=== PATIENT | male | born 1970 | race Caucasian/White ===

== ENCOUNTER 2020-02-07 03:14 | Emergency (ER) | payer OTHER, SELFPAY ==
--- NOTE | ~2020-02-07 | XR_ITS ---
XR chest 2V DATE: 02/07/2020 03:58 INDICATION: Left-sided chest pain TECHNIQUE: PA and lateral views COMPARISON: 05/08/2008 two-view chest FINDINGS: Normal heart size. No hilar or mediastinal enlargement. No pulmonary infiltrate or consolid ation, pleural effusion or pulmonary vascular congestion or pneumothorax. Surgical clips, right upper quadrant, consistent with cholecystectomy. Mild scoliosis and degenerativ e spurring of the thoracic spine. IMPRESSION: No active cardiopulmonary disease Reviewed, dictated and finalized at location A.
[2020-02-07 03:20] VITALS: BP 171/101; PULSE 91; RESP 22; TEMP 37.5; O2SAT 100
[2020-02-07 03:23] VITALS: PULSE 87
--- NOTE | 2020-02-07 03:24 | PC.NURSE ---
Pt states having a metallic taste in his mouth earlier.
[2020-02-07 04:00] LABS: Basophils Percent Auto 0.8 % (0.2-1.2); Eosinophils Absolute Auto 0.2 K/mm3 (0-0.3); Hemoglobin 15.8 g/dL (14.0-18.0); Immature Granulocyte Absolute 0.01 K/mm3 (0.00-0.031); Immature Granulocyte Percent A 0.2 % (0-0.5); Immature Platelet Fraction Pct 4.8 % (0.9-11.2); Lymphocytes Absolute Auto 1.37 K/mm3 (0.9-3.2); Lymphocytes Percent Auto 27.2 % (18.3-44.2); Mean Corpuscular HGB Conc 35.1 g/dl (32-36); Mean Corpuscular Hemoglobin 34.3 pg (26-34); Mean Corpuscular Volume 97.6 fl (80-100); Mean Platelet Volume 11.2 fl (7.4-10.4); Monocytes Absolute Auto 0.8 K/mm3 (0.1-0.6); Monocytes Percent Auto 15.9 % (2.6-8.5); Neutrophils Absolute Auto 2.7 K/mm3 (1.3-6.7); Neutrophils Percent Auto 52.9 % (45.5-73.1); Platelet Count Result 106 k/mm3 (150-375); Red Blood Count 4.61 M/mm3 (4.6-6.20); Red Cell Distribution Width 13.4 % (11.5-14.5)
[2020-02-07 04:02] VITALS: BP 173/103; PULSE 87
[2020-02-07 04:10] LABS: INR 1.2; Prothrombin Time 14.6 Seconds (11.1-14.7)
[2020-02-07 04:11] LABS: Partial Thromboplastin Time 32.7 SECONDS (22.3-36.8)
[2020-02-07 04:13] LABS: Blood Urea Nitrogen 5 mg/dL (9-20); Calcium 8.4 mg/dL (8.4-10.2); Carbon Dioxide 23 mmol/L (22-30); Chloride 107 mmol/L (98-107); Estimated CRCL calculation 199 ml/min; Estimated Glomerular Filt Rate > 60; Glucose 156 mg/dL (75-110); Potassium 3.6 mmol/L (3.4-5.0); Sodium 136 mmol/L (137-145)
[2020-02-07] MEDS: ASPIRIN 81 MG CHEWABLE TABLET 324 MG PO (04:17)
--- NOTE | 2020-02-07 04:21 | ED.GENADULT ---
HPI - General Adult General Chief complaint: Chest Pain <Cristian Rodriges MD - Last Filed: 02/07/20 04:59> Stated complaint: Chest pain <Cristian Rodriges MD - Last Filed: 02/07/20 04:59> Time Seen by Provider: 02/07/20 03:16 <Cristian Rodriges MD - Last Filed: 02/07/20 04:59> History of Present Illness HPI narrative: Patient is a 49-year-old male who presents to the ER with chest pain. Began around 1230 and 1 AM. Intermittent. Pain was left center chest. Would last for a few seconds but was increasing in duration and intensity. No nausea/vomiting/shortness of breath/diaphoresis. No known injury. No known aggravating or alleviating factors. No history of cardiac disease. Reports 10 years ago he had cramping in his chest that was diagnosed as pneumonia. Reports temperature of 98.9 ?F. Patient does report the day prior he had a cramp in the posterior aspect of his left neck with some numbness going down his left arm. That has since resolved on its own. Symptoms would be worsened with turning his head and there is no chest pain at that time. Patient also reports that he has been feeling fatigued for the last year and has had increased stress at work and has lost interest in his hobbies. He feels extremely exhausted by 3 PM in the afternoon and has to take a nap. He has not had this worked up. No previous history of depression. <Cristian Rodriges MD - Last Filed: 02/07/20 04:59> Related Data Allergies/adverse reactions: Allergies Allergy/AdvReac Type Severity Reaction Status Date / Time Penicillins Allergy Unknown Rash Verified 02/07/20 03:22 <Cristian Rodriges MD - Last Filed: 02/07/20 04:59> Review of Systems Review of Systems: All systems reviewed & are unremarkable except as noted in HPI and below <Cristian Rodriges MD - Last Filed: 02/07/20 04:59> Constitutional: Constitutional: Denies chills, Reports fatigue, Denies fever(s) and Denies weakness <Cristian Rodriges MD - Last Filed: 02/07/20 04:59> ENT: Denies sore throat <Cristian Rodriges MD - Last Filed: 02/07/20 04:59> Cardiovascular: Cardiovascular: Reports chest pain and Reports radiating jaw, neck or arm pain <Cristian Rodriges MD - Last Filed: 02/07/20 04:59> Respiratory: Respiratory: Denies cough, Denies dyspnea and Denies wheezing <Cristian Rodriges MD - Last Filed: 02/07/20 04:59> Gastrointestinal: Gastrointestinal: Denies abdominal pain, Reports heartburn (metallic taste in mouth), Denies nausea and Denies vomiting <Cristian Rodriges MD - Last Filed: 02/07/20 04:59> PMFSH Past Medical History Medical History: Medical History (Updated 02/07/20 @ 07:19 by Carlos Brown DO) BPH (benign prostatic hyperplasia) Hemochromatosis Hypertension <Cristian Rodriges MD - Last Filed: 02/07/20 04:59> Surgical History Surgical History: Surgical History (Updated 02/07/20 @ 04:29 by Cristian Rodriges MD) S/P knee replacement <Cristian Rodriges MD - Last Filed: 02/07/20 04:59> Family History Family History: Family History (Updated 02/07/20 @ 04:29 by Cristian Rodrigse MD) Father Malignant neoplasm of prostate <Cristian Rodriges MD - Last Filed: 02/07/20 04:59> Social History Social History: Social History Smoking status: Never smoker Alcohol intake: current <Cristian Rodriges MD - Last Filed: 02/07/20 04:59> Exam Narrative: Exam Narrative: GENERAL: Well-appearing, obese, and in no acute distress. HEAD: Normocephalic, atraumatic. ENT: Mucous membranes moist. CHEST: Clear to auscultation. No respiratory distress. HEART: Regular rate and rhythm. No murmur heard. Normal peripheral pulses. ABDOMEN: Soft, nontender, nondistended. EXTREMITIES: Normal range of motion. 1+ edema. SKIN: Warm, dry, no rash. NEURO: Alert and oriented x3. PSYCH: Normal mood and affect. <Cristian Rodriges MD - Last Filed: 02/07/20 04:59> Course Course Emergency Course:
[2020-02-07 04:25] LABS: Troponin I < 0.012 ng/mL (0.000-0.034)
[2020-02-07 06:19] VITALS: BP 164/97; PULSE 95; RESP 18; O2SAT 100
[2020-02-07 07:05] LABS: Troponin I < 0.012 ng/mL (0.000-0.034)
--- NOTE | 2020-02-07 12:45 | ECG_ITS ---
Measurements Intervals [place] Rate: 89 P: 29 DC: 154 QRS: 5 QRSD: 114 T: 14 QT: 385 QTc: 469 Interpretive Statements SINUS RHYTHM INTRAVENTRICULAR CONDUCTION DELAY BASELINE ARTIFACT- I, II, III, AVL, AVF BORDERLINE ECG Electronically Signed On 02-07-2020 13:00:48 CDT by Rashad Garcia D.O.
== END 2020-02-07 06:19 | disposition home or self-care (01) ==
PROVIDERS: Emergency Medicine; Emergency Provider Emergency Medicine; PCP Family Medicine
DX: R07.9 Chest pain, unspecified (principal); N40.0 Benign prostatic hyperplasia without lower urinary tract symptoms; I10 Essential (primary) hypertension; E83.119 Hemochromatosis, unspecified; Z96.659 Presence of unspecified artificial knee joint; I45.9 Conduction disorder, unspecified
CPT/HCPCS: 36415; 71046; 80048; 84443; 84484; 85025; 85055; 85610; 85730; 93005; 99284; A9270

== ENCOUNTER 2020-09-08 11:48 | Inpatient (IN) | payer OTHER, SELFPAY ==
[2020-09-08] VITALS (15 sets, daily range): BP systolic 145–180; BP diastolic 71–89; PULSE 88–110; RESP 14–22; TEMP 37.1–39.6; O2SAT 94–99; BMI 38.9
--- NOTE | ~2020-09-08 | CT_ITS ---
EXAMINATION: CT abdomen pelvis w con DATE: 09/08/2020 13:24 INDICATION: Right lower quadrant abdominal pain. Fever. TECHNIQUE: Computed tomography (CT) of the abdomen and pelvis was performed with 100 cc Omnipaque 350 intravenous contrast. The dose-length product was 1432.69 mGy-cm. Automated exposure control and ite rative reconstruction technique were employed. COMPARISON: None. FINDINGS: Lung bases are unremarkable. No significant pleural or pericardial effusion. Heart size is normal. Fatty infiltration of the liver. There is cirrhosis of the liver. There are low-density lesions in th e right hepatic lobe, most likely benign cysts. There is splenomegaly. There are multiple collateral vessels with recanalization of the umbilical vein. Findings compatible with portal hypertension. There is a 3 mm distal right ureteral stone with mild right hydroureteronephrosis. There is perinephr ic and periureteral edema. Normal appendix. Bladder wall is mildly thickened. Colonic diverticulosis without evidence for diverticulitis. No abnormality of the aorta. No significant lymphadenopathy. IMPRESSION: 1. Distal right ureteral stone in the pelvis measuring 3 mm with mild hydronephrosis. 2: Cirrhosis of the liver with evidence of portal hypertension. 3: Bladder wall thickening. Consider correlation with urinalysis. Reviewed, dictated and finalized at location A. IMPRESSION: 1. Distal right ureteral stone in the pelvis measuring 3 mm with mild hydroneph rosis. 2: Cirrhosis of the liver with evidence of portal hypertension. 3: Bladder wall thickening. Consider correlation with urinalysis.
--- NOTE | ~2020-09-08 | XR_ITS ---
XR retrograde pyelo w/stent RT DATE: 09/08/2020 15:41 INDICATION: Stones TECHNIQUE: 30.0 seconds fluoroscopy time [id number] mGym2 3. Spot C-arm images of the abdomen and pelvis COMPARISON: None FINDINGS: Examination is limited due to motion. There is placement of a right internal urinary stent, proximal pigtail overlying the right renal silhouette approximately, the distal pigtail overlying th e right lower pelvic area. Detail is limited. IMPRESSION: Right internal urinary stent placement Reviewed, dictated and finalized at [facility]. Reviewed, dictated and finalized at location A.
--- NOTE | 2020-09-08 12:05 | ED.MALEGU ---
HPI - Male Genitourinary General Chief complaint: Urogenital-Male Stated complaint: sent by PMD for possible sepsis. Time Seen by Provider: 09/08/20 12:05 Source: patient Mode of arrival: ambulatory Limitations: no limitations History of Present Illness HPI Narrative: Patient is a 50-year-old male with history of hemochromatosis who presents for evaluation of possible sepsis per his primary care provider. Patient states over the past 3 weeks he has had dysuria, hematuria as well as some dribbling incontinence He reports mild right lower quadrant pain and right flank pain. He denies nausea or vomiting, reports fever. Patient states general malaise and myalgias. He denies any cough, chest pain or shortness of breath. No urinalysis sample sent or recent antibiotics. No recent sick contacts. Patient reports that he has been jaundiced. He states that he does not receive regular phlebotomy at this point. He formerly followed at [facility], but his community associate recently retired and he has not established care with anybody. Related Data Home Medications Medication Instructions Recorded Confirmed pantoprazole 20 mg tablet,delayed 20 mg PO [facility] [place] 02/08/20 release Allergies Allergy/AdvReac Type Severity Reaction Status Date / Time Penicillins Allergy Unknown Rash Verified 09/08/20 12:00 Review of Systems Review of Systems: Narrative: CONSTITUTIONAL: Reports fever and chills EYES: Denies visual changes, redness, or discharge. ENT: Denies rhinorrhea, congestion, sore throat, or otalgia. CARDIOVASCULAR: Denies chest pain, palpitations, or edema. RESPIRATORY: Denies cough or dyspnea. GASTROINTESTINAL: Reports mild right-sided abdominal pain, denies nausea, vomiting or diarrhea GENITOURINARY: Reports dysuria and hematuria. SKIN: Denies rash or itching. MUSCULOSKELETAL: Denies back pain, joint pain, or myalgia. NEUROLOGIC: Denies headache, numbness, or weakness. [facility] Past Medical History Medical History BPH (benign prostatic hyperplasia) Depression Hemochromatosis Hypertension Urge incontinence Surgical History Surgical History S/P knee replacement Family History Family History Father Malignant neoplasm of prostate Social History Social History Smoking status: Never smoker Alcohol intake: current Exam Narrative: Exam Narrative: GENERAL: Awake, alert, conversant HEAD: Normocephalic, atraumatic. EYES: PERRLA and EOMI. scleral icterus bilaterally. ENT: Nares clear, no rhinorrhea or epistaxis. Mucous membranes moist. NECK: Supple. CHEST: No respiratory distress, breathing even and non labored HEART: Tachycardic his eyes rate, sinus rhythm ABDOMEN:Non distended, mild tenderness in the right lower quadrant, no guarding, no rebound EXTREMITIES: Normal range of motion. No edema. SKIN: Mildly jaundiced NEURO:No focal deficits. Alert and oriented x3 Course Vital Signs Vital signs: Vital Signs Temperature 38.7 C H 09/08/20 11:54 Pulse Rate 110 H 09/08/20 11:54 Respiratory Rate 22 H 09/08/20 11:54 Blood Pressure 154/73 H 09/08/20 11:54 Pulse Oximetry 97 09/08/20 11:54 Temperature 38.7 C H 09/08/20 11:54 Pulse Rate 88 09/08/20 15:04 Respiratory Rate 18 09/08/20 15:04 Blood Pressure 150/80 H 09/08/20 15:04 Pulse Oximetry 99 09/08/20 15:04 MDM - Male Genitourinary MDM Narrative Medical decision making narrative: Patient is a 50-year-old male that presented for evaluation of fever, right-sided abdominal pain. At the time of assessment, ABCs are intact, vital signs notable for fever, tachycardia. No hypotension. IV access obtained, labs are drawn, including blood cultures and lactic. Patient was given a 30 mL/kg fluid bolus. Urinalysis consistent with uri
--- NOTE | 2020-09-08 12:07 | ECG_ITS ---
Measurements Intervals [place] Rate: 98 P: 49 VA: 160 QRS: 16 QRSD: 105 T: 10 QT: 346 QTc: 442 Interpretive Statements SINUS RHYTHM RSR' IN V1 OR V2, CONSIDER RIGHT VENTRICULAR HYPERTROPHY OR RIGHT VCD BORDERLINE T WAVE ABNORMALITY- INFERIOR LEADS BORDERLINE ECG Electronically Signed On 09-08-2020 18:11:43 CDT by Rashad Garcia D.O.
[2020-09-08 12:39] LABS: Basophils Percent Auto 0.4 % (0.2-1.2); Eosinophils Percent Auto 0.3 % (0-4.4); Hematocrit 44.4 % (42.0-52.0); Immature Granulocyte Absolute 0.03 K/mm3 (0.00-0.031); Immature Granulocyte Percent A 0.3 % (0-0.5); Immature Platelet Fraction Pct 5.7 % (0.9-11.2); Lymphocytes Absolute Auto 1.32 K/mm3 (0.9-3.2); Lymphocytes Percent Auto 11.9 % (18.3-44.2); Mean Corpuscular Hemoglobin 36.2 pg (26-34); Mean Corpuscular Volume 100.5 fl (80-100); Mean Platelet Volume 11.6 fl (7.4-10.4); Monocytes Absolute Auto 1.4 K/mm3 (0.1-0.6); Neutrophils Absolute Auto 8.2 K/mm3 (1.3-6.7); Neutrophils Percent Auto 74.1 % (45.5-73.1); Platelet Count Result 122 k/mm3 (150-375); Red Blood Count 4.42 M/mm3 (4.6-6.20); Red Cell Distribution Width 13.5 % (11.5-14.5); White Blood Count 11.1 K/mm3 (4.5-10.0)
[2020-09-08 12:44] LABS: Add Urine Microscopic? YES; Appearance Urine Clear (Clear); Bacteria Urine 3+ /hpf; Bilirubin Urine 1+ (Negative); Blood Urine 1+ (Negative); Color Urine Amber (Yellow); Glucose Urine UA Negative (Negative); Ketones Urine Negative (Negative); Leukocyte Esterase Ur Trace LEU/UL (Negative); Mucus Urine Rare /lpf; Nitrate Urine Negative (Negative); Protein Urine Negative (Negative); Squamous Epithelial Cell Urine Rare /hpf (Few); WBC Urine 21-30 /hpf
[2020-09-08 12:49] LABS: INR 1.3
[2020-09-08 12:50] LABS: Partial Thromboplastin Time 34.9 SECONDS (22.3-36.8)
[2020-09-08 12:50] LABS: Lactic Acid Reflex 1.3 mmol/L (0.7-2.1)
[2020-09-08 12:51] LABS: Alanine Aminotransferase 68 U/L (4-50); Albumin Level 3.7 g/dL (3.5-5.1); Alkaline Phosphatase 146 U/L (38-126); Anion Gap 9 mmol/L (8-16); Aspartate Amino Transferase 108 U/L (17-59); Bilirubin,Total 6.7 mg/dL (0.2-1.3); Blood Urea Nitrogen 12 mg/dL (9-20); Calcium 9.2 mg/dL (8.4-10.2); Carbon Dioxide 27 mmol/L (22-30); Chloride 99 mmol/L (98-107); Estimated CRCL calculation 111 ml/min; Estimated Glomerular Filt Rate > 60; Glucose 121 mg/dL (75-110); Lipase 50 U/L (23-300); Potassium 3.7 mmol/L (3.4-5.0); Sodium 135 mmol/L (137-145)
--- NOTE | 2020-09-08 14:13 | WPDANESEPP ---
Anes - Eval Pre Procedure Procedure: cystoscopy Date/Time: 09/08/20 14:13 Pre Op Diagnosis: sent by PMD for possible sepsis. Patient Data Age: 50 Gender: M Height: 5 ft 11 in Weight: 115.6 kg Last Vital Signs Temp 38.7 C H 09/08/20 11:54 Pulse 110 H 09/08/20 11:54 Resp 22 H 09/08/20 11:54 BP 154/73 H 09/08/20 11:54 Pulse Ox 97 09/08/20 11:54 Allergies Allergy/AdvReac Type Severity Reaction Status Date / Time Penicillins Allergy Unknown Rash Verified 09/08/20 12:00 Home Medications Medication Instructions Recorded Confirmed Type pantoprazole 20 mg tablet,delayed 20 mg PO QAM 02/08/20 History release Laboratory Tests 09/08/20 09/08/20 09/08/20 12:16 12:16 12:16 WBC 11.1 K/mm3 H K/mm3 (4.5-10.0) RBC 4.42 M/mm3 L M/mm3 (4.6-6.20) Hgb 16.0 g/dL g/dL (14.0-18.0) Hct 44.4 % % (42.0-52.0) MCV 100.5 fl H fl (80-100) MCH 36.2 pg H pg (26-34) MCHC 36.0 g/dl g/dl (32-36) RDW 13.5 % % (11.5-14.5) Plt Count 122 k/mm3 L k/mm3 (150-375) MPV 11.6 fl H fl (7.4-10.4) Immature Gran % (Auto) 0.3 % % (0-0.5) Neut % (Auto) 74.1 % H % (45.5-73.1) Lymph % (Auto) 11.9 % L % (18.3-44.2) [place] % (Auto) 13.0 % H % (2.6-8.5) Eos % (Auto) 0.3 % % (0-4.4) Baso % (Auto) 0.4 % % (0.2-1.2) Lymph # (Auto) 1.32 K/mm3 K/mm3 (0.9-3.2) [place] # (Auto) 1.4 K/mm3 H K/mm3 (0.1-0.6) Eos # (Auto) 0.0 K/mm3 K/mm3 (0-0.3) Baso # (Auto) 0.0 K/mm3 K/mm3 (0.0-0.1) Abs Immat Gran (auto) 0.03 K/mm3 K/mm3 (0.00-0.031) Absolute Neuts (auto) 8.2 K/mm3 H K/mm3 (1.3-6.7) Absolute Nucleated RBC 0.0 K/mm3 K/mm3 (0.0-0.012) Nucleated RBC % 0.0 % % (0.0-0.2) % Immature Plt Fraction 5.7 % % (0.9-11.2) PT INR APTT Sodium 135 mmol/L L mmol/L (137-145) Potassium 3.7 mmol/L mmol/L (3.4-5.0) Chloride 99 mmol/L mmol/L (98-107) Carbon Dioxide 27 mmol/L mmol/L (22-30) Anion Gap 9 mmol/L mmol/L (8-16) BUN 12 mg/dL D mg/dL (9-20) Creatinine 0.90 mg/dL mg/dL (0.7-1.3) Estim Creat Clear Calc 111 ml/min ml/min Estimated GFR > 60 (59 - ) Glucose 121 mg/dL H mg/dL (75-110) Lactic Acid Calcium 9.2 mg/dL mg/dL (8.4-10.2) Total Bilirubin 6.7 mg/dL H mg/dL (0.2-1.3) AST 108 U/L H U/L (17-59) ALT 68 U/L H U/L (4-50) Alkaline Phosphatase 146 U/L H U/L (38-126) Total Protein 8.0 g/dL g/dL (6.3-8.2) Albumin 3.7 g/dL g/dL (3.5-5.1) Lipase 50 U/L U/L (23-300) Urine Color Taryn (Yellow) Urine Appearance Clear (Clear) Urine pH 7.0 (5.0-9.0) Ur Specific [place] 1.020 (1.001-1.035) Urine Protein Negative mg/dL mg/dL (Negative) Urine Glucose (UA) Negative mg/dL mg/dL (Negative) Urine Ketones Negative mg/dL mg/dL (Negative) Ur Blood (Man) 1+ H (Negative) Urine Nitrate Negative (Negative) Urine Bilirubin 1+ H (Negative) Urine Urobilinogen 4.0 mg/dL H mg/dL (<2.0) Leukocyte Esterase Rfl Trace MARIN/UL H MARIN/UL (Negative) Urine RBC 11-20 /hpf H /hpf (0-2) Urine WBC 21-30 /hpf H /hpf Ur Squamous Epith Cells Rare /hpf /hpf (Few) Urine Bacteria 3+ /hpf H /hpf Urine Mucus Rare /lpf /lpf 09/08/20 09/08/20 12:16 12:21 WBC RBC Hgb Hct MCV MCH MCHC RDW Plt Count MPV Immature Gran % (Auto) Neut % (Auto) Lymph % (
--- NOTE | 2020-09-08 14:50 | WPDURCON ---
Assessment and Plan Additional Plan Right distal ureteral stone with fever and tachycardia. He will need a right ureteral stent to relieve any obstruction present. We discussed that he will still need definitive stone management after this treatment. It is unclear all of his symptoms are related to the stone. His CT scan shows findings consistent with portal hypertension. Urology Consult Note HPI Date Seen: 09/08/20 Requesting Physician: Chris Boyd MD Primary Care Provider: Jose Cruz Meza MD Consult Narrative Narrative: Esteban Calzada is a 50 year old male. He has been having right sided abdominal pain. He developed a fever and sweats and came to the ER. He was found to have a right ureteral stone on CT scan. Review of Systems Constitutional: Constitutional: Reports body ache(s) and Reports chills Eyes: Eyes: Reports no additional eye complaints Cardiovascular: Cardiovascular: Reports no additional cardiovascular complaints Gastrointestinal: Gastrointestinal: Reports abdominal pain Musculoskeletal: Musculoskeletal: Reports no additional musculoskeletal complaints Neurologic: Reports Normal hearing present Psychiatric: Psychiatric: Reports no additional psychiatric complaints Endocrine: Endocrine: Reports no additional endocrine complaints Hematologic/Lymphatic: Hematologic/Lymphatic: Reports no additional hematologic/lymphatic complaints Allergic/Immunologic: Allergic/Immunologic: Reports no additional allergic/immunologic complaints [facility] Past Medical History Medical History BPH (benign prostatic hyperplasia) Depression Hemochromatosis Hypertension Urge incontinence Surgical History Surgical History S/P knee replacement Family History Family History Father Malignant neoplasm of prostate Social History Social History Smoking status: Never smoker Alcohol intake: current Meds Home Medications and Allergies Home Medications Medication Instructions Recorded Confirmed Type pantoprazole 20 mg tablet,delayed 20 mg PO QAM 02/08/20 History release Allergies Allergy/AdvReac Type Severity Reaction Status Date / Time Penicillins Allergy Unknown Rash Verified 09/08/20 12:00 Vital Signs Vital Signs - 24 hr 09/08/20 11:54 Temperature 38.7 C H Pulse Rate 110 H Respiratory Rate 22 H Blood Pressure 154/73 H Pulse Oximetry 97 Exam Const: General: cooperative; No comfortable HENMT: Head: normal to inspection, normocephalic and atraumatic Eyes: Sclera: scleral abnormality bilateral Neck: Neck: normal visual inspection Chest: Chest palpation & inspection: normal inspection of the chest Resp: Effort & Inspection: normal respiratory effort Cardio: Rate: tachycardic GI: Inspection: no edema, non-distended and [place] present Skin: General skin exam: normal color and no rashes or lesions noted Neuro: General: oriented to person, oriented to place and oriented to time Extrem: General: normal to inspection Psych: Appearance: grossly normal and well kempt Results Labs CBC & Chem 7: 09/08/20 12:16 09/08/20 12:16 Labs: Short CBC 09/08/20 Range/Units 12:16 WBC 11.1 H (4.5-10.0) K/mm3 Hgb 16.0 (14.0-18.0) g/dL Hct 44.4 (42.0-52.0) % Plt Count 122 L (150-375) k/mm3 BMP 09/08/20 12:16 Sodium 135 L Potassium 3.7 Chloride 99 Carbon Dioxide 27 BUN 12 D Creatinine 0.90 Glucose 121 H Calcium 9.2 Liver Function 09/08/20 Range/Units 12:16 Total Bilirubin 6.7 H (0.2-1.3) mg/dL AST 108 H (17-59) U/L ALT 68 H (4-50) U/L Alkaline Phosphatase 146 H (38-126) U/L Albumin 3.7 (3.5-5.1) g/dL Urine 09/08/20 Range/Units 12:16 Urine Co
--- NOTE | 2020-09-08 15:09 | WPDANESEPPF ---
Anes - Initial Pre Proc Eval Procedure: Operation Date: 09/08/20 15:30 Proposed Procedures p Cysto, RPG, Stone Ext, Stent Placement(Right) - Chris Boyd MD Date/Time: 09/08/20 15:09 Surgeon: Chris Boyd MD Pre Op Diagnosis: sent by PMD for possible sepsis. Patient Data Age: 50 Gender: M Height: 1.8 m Weight: 115.6 kg Last Vital Signs Temp 38.7 C H 09/08/20 11:54 Pulse 88 09/08/20 15:04 Resp 18 09/08/20 15:04 BP 150/80 H 09/08/20 15:04 Pulse Ox 99 09/08/20 15:04 Allergies Allergy/AdvReac Type Severity Reaction Status Date / Time Penicillins Allergy Unknown Rash Verified 09/08/20 12:00 Home Medications Medication Instructions Recorded Confirmed Type pantoprazole 20 mg tablet,delayed 20 mg PO QAM 02/08/20 History release Laboratory Tests 09/08/20 09/08/20 09/08/20 12:16 12:16 12:16 WBC 11.1 K/mm3 H K/mm3 (4.5-10.0) RBC 4.42 M/mm3 L M/mm3 (4.6-6.20) Hgb 16.0 g/dL g/dL (14.0-18.0) Hct 44.4 % % (42.0-52.0) MCV 100.5 fl H fl (80-100) MCH 36.2 pg H pg (26-34) MCHC 36.0 g/dl g/dl (32-36) RDW 13.5 % % (11.5-14.5) Plt Count 122 k/mm3 L k/mm3 (150-375) MPV 11.6 fl H fl (7.4-10.4) Immature Gran % (Auto) 0.3 % % (0-0.5) Neut % (Auto) 74.1 % H % (45.5-73.1) Lymph % (Auto) 11.9 % L % (18.3-44.2) [place] % (Auto) 13.0 % H % (2.6-8.5) Eos % (Auto) 0.3 % % (0-4.4) Baso % (Auto) 0.4 % % (0.2-1.2) Lymph # (Auto) 1.32 K/mm3 K/mm3 (0.9-3.2) [place] # (Auto) 1.4 K/mm3 H K/mm3 (0.1-0.6) Eos # (Auto) 0.0 K/mm3 K/mm3 (0-0.3) Baso # (Auto) 0.0 K/mm3 K/mm3 (0.0-0.1) Abs Immat Gran (auto) 0.03 K/mm3 K/mm3 (0.00-0.031) Absolute Neuts (auto) 8.2 K/mm3 H K/mm3 (1.3-6.7) Absolute Nucleated RBC 0.0 K/mm3 K/mm3 (0.0-0.012) Nucleated RBC % 0.0 % % (0.0-0.2) % Immature Plt Fraction 5.7 % % (0.9-11.2) PT INR APTT Sodium 135 mmol/L L mmol/L (137-145) Potassium 3.7 mmol/L mmol/L (3.4-5.0) Chloride 99 mmol/L mmol/L (98-107) Carbon Dioxide 27 mmol/L mmol/L (22-30) Anion Gap 9 mmol/L mmol/L (8-16) BUN 12 mg/dL D mg/dL (9-20) Creatinine 0.90 mg/dL mg/dL (0.7-1.3) Estim Creat Clear Calc 111 ml/min ml/min Estimated GFR > 60 (59 - ) Glucose 121 mg/dL H mg/dL (75-110) Lactic Acid Calcium 9.2 mg/dL mg/dL (8.4-10.2) Total Bilirubin 6.7 mg/dL H mg/dL (0.2-1.3) AST 108 U/L H U/L (17-59) ALT 68 U/L H U/L (4-50) Alkaline Phosphatase 146 U/L H U/L (38-126) Total Protein 8.0 g/dL g/dL (6.3-8.2) Albumin 3.7 g/dL g/dL (3.5-5.1) Lipase 50 U/L U/L (23-300) Urine Color Taryn (Yellow) Urine Appearance Clear (Clear) Urine pH 7.0 (5.0-9.0) Ur Specific [place] 1.020 (1.001-1.035) Urine Protein Negative mg/dL mg/dL (Negative) Urine Glucose (UA) Negative mg/dL mg/dL (Negative) Urine Ketones Negative mg/dL mg/dL (Negative) Ur Blood (Man) 1+ H (Negative) Urine Nitrate Negative (Negative) Urine Bilirubin 1+ H (Negative) Urine Urobilinogen 4.0 mg/dL H mg/dL (<2.0) Leukocyte Esterase Rfl Trace MARIN/UL H MARIN/UL (Negative) Urine RBC 11-20 /hpf H /hpf (0-2) Urine WBC 21-30 /hpf H /hpf Ur Squamous Epith Cells Rare /hpf /hpf (Few) Urine Bacteria 3+ /hpf H /hpf Urine Mucus Rare /lpf /lpf 09/08/20 09/08/20 12:16 12:21 WBC RBC Hgb Hct MCV
--- NOTE | 2020-09-08 15:15 | PC.NURSE ---
pt received all 3500ml of MS that was ordered in the ED.
[2020-09-08] MEDS: LIDOCAINE HCL 2% GEL UROJET 10 ML PKG MUCOUS MEM (15:32)
[2020-09-08] MEDS: LACTATED RINGERS 1,000 ML 30 ML IV CONT (15:41)
--- NOTE | 2020-09-08 15:41 | P.OP_ITS ---
Procedure Note - Detailed Date of procedure: 09/08/20 Pre-op diagnosis: sent by PMD for possible sepsis. Right ureteral stone Post-op diagnosis: same Procedure performed: Cystoscopy with right retrograde pyelogram and right ureteral stent placement Description of procedure: Indication for procedure: ureteral stone with possible sepsis Procedure Report: The patient was brought emergently to the operating room for a right ureteral stone. He was in stable condition. He was placed under monitored anesthesia care with sedation. Local lidocaine jelly was given. He was placed in lithotomy position and prepped and draped in sterile fashion. A 22 [place] cystoscope was introduced through the urethra into the bladder. The right ureter was cannulated with the [id number] wire followed by an open ended catheter. A retrograde pyelogram was performed. There was mild right hydronephrosis. The wire was placed to the upper pole of the right kidney. Under direct vision and fluoroscopic guidance, a 6 [place] variable length stent was placed. A good curl was noted in the upper pole of the kidney and a good curl was seen in the bladder. The bladder was drained, and the cystoscope was removed. The patient was brought to the recovery room in stable condition. Implants: 6 [place] ureteral stent Anesthesia: MAC Surgeon: Chris Boyd MD Estimated blood loss (mL): 0 IV fluids (mL): 300 Drains: No Packing: No Pathology: none sent Complications: No immediate complications Condition: stable Disposition: PACU Findings: Mild right hydronephrosis
--- NOTE | 2020-09-08 16:08 | SUR.PHASEI ---
1608 - Ashlee CHAMBERS aware of pt's temp of 103.3. no orders received at this time.
--- NOTE | 2020-09-08 16:50 | ADMGEN ---
This patient, Esteban Calzada, was admitted to IMU Room 203-01. Patient/family oriented to hospital policies and general routines including ID bracelet, bed and alarms, visiting hours, pain management, procedures, bathroom and other care routines, personal items, smoking policy, room service/diet, and visiting hours. Valuables list has been completed. Information on how to activate the Rapid Response Team has been discussed. Patient/Family are encouraged to report perceived risks to care and to ask questions if they do not understand what they are told or what they should do.
[2020-09-08] MEDS: DOCUSATE SODIUM 100 MG CAPSULE PO (18:02)
[2020-09-08] MEDS: DEXTROSE 5%/LACTATED RINGERS 1,000 ML 125 ML IV CONT (18:02)
--- NOTE | 2020-09-08 19:56 | PM.IMHP ---
H&P: HPI History of Present Illness Date/Time: 09/08/20 19:56 Chief complaint: sent by PMD for possible sepsis. Narrative: Esteban Calzada is a 50 year old male Who has a history of hemochromatosis and is treated with phlebotomy Once a month. The patient has never had any history of kidney stones. The patient was having some hematuria as well some dribbling incontinence. He reports mild right lower quadrant pain and right flank pain. He denies any nausea vomiting. He does report of pain he had some generalized malaise and myalgia. He has had no recent sick contacts or been around anybody that was positive for COVID-19. Patient reported that he is more jaundiced than normal. 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 The patient states that he has a biopsy about once every 5 years. Patient was noted to have depression but is not on any medication. Also he was diagnosed with hypertension and does not take any medicine for his high blood pressure. The patient stated he does not like to take any medicine. Abdominal pelvis CT was read as distal right ureteral stone in the pelvis measuring 3 mm with a mild hydro nephrosis. Cirrhosis of the liver with evidence of portal hypertension. Bladder wall thickening consider correlation with urinalysis. Patient was taken down to surgery per Urology and a right internal urinary stent was placed. He had a retrograde g pyelogram that showed the right internal urinary stent placement. See operative report. Patient had been started on Rocephin per ED physician. Blood cultures are pending. Patient had a fever over 102 at home. The patient has been having dysuria and hematuria for about 3 weeks now. Patient was admitted to IMU for observation date of service is 09/08/2020 Review of Systems Review of Systems: All systems reviewed & are unremarkable except as noted in HPI and below Constitutional: Constitutional: Reports as per HPI and Reports no additional constitutional complaints Eyes: Eyes: Reports as per HPI and Reports no additional eye complaints ENT: Reports system reviewed and no additional complaints, except as documented and Reports Normal hearing present Cardiovascular: Cardiovascular: Reports no additional cardiovascular complaints Respiratory: Respiratory: Reports no additional respiratory complaints and Reports no additional respiratory complaints Gastrointestinal: Gastrointestinal: Reports as per HPI and Reports no additional gastrointestinal complaints Musculoskeletal: Musculoskeletal: Reports no additional musculoskeletal complaints Integumentary/Breasts: Skin/Breast: Reports system reviewed and no additional complaints, except as docu and Reports as per HPI Neurologic: Reports system reviewed and no additional complaints, except as documented, Reports as per HPI and Reports Normal hearing present Psychiatric: Psychiatric: Reports no additional psychiatric complaints and Reports as per HPI Endocrine: Endocrine: Reports no additional endocrine complaints Hematologic/Lymphatic: Hematologic/Lymphatic: Reports no additional hematologic/lymphatic complaints Allergic/Immunologic: Allergic/Immunologic: Reports no additional allergic/immunologic complaints [facility] Past Medical History Medical History (Updated 09/08/20 @ 20:07 by Jeanette Tyler NP) BPH (benign prostatic hyperplasia) Depression patient denies this diagnosis and does not take any medicine. Essential (primary) hypertension Patient's blood pressure is elevated today. He said he was elevated in the office but is just monitoring it and is not on any medicine. Familial hemochromatosis Hemochromatosis Hypertension Sleep apnea, unspecified Urge incontinence Surgical History Surgical History (Updated 09/08/20 @ 20:07 by Jeanette Tyler NP) H/O cystoscopy right renal stent 09/08/2020 History of liver biopsy Hx of cholecystec
[2020-09-08] MEDS: MELATONIN 3 MG TABLET PO (20:23)
[2020-09-08] MEDS: hydrALAZINE HCL 20 MG/ML VIAL 10 MG IV PUSH (20:24)
[2020-09-08] MEDS: MORPHINE SULFATE (*CRX) 2 MG/ML INJ IV PUSH (20:25)
[2020-09-08] MEDS: LORazepam INJ (*CRX) 2 MG/ML VIAL 0.5 MG IV PUSH (20:28)
[2020-09-08] MEDS: TAMSULOSIN HCL 0.4 MG CAPSULE PO (22:28)
[2020-09-09] VITALS (10 sets, daily range): BP systolic 136–147; BP diastolic 73–77; PULSE 79–94; RESP 16–20; TEMP 36.2–38; O2SAT 97–100
[2020-09-09] MEDS: MORPHINE SULFATE (*CRX) 2 MG/ML INJ IV PUSH ×3 (00:08→15:32)
[2020-09-09] MEDS: DEXTROSE 5%/LACTATED RINGERS 1,000 ML 125 ML IV CONT ×3 (03:10→19:07)
[2020-09-09] MEDS: LORazepam INJ (*CRX) 2 MG/ML VIAL 0.5 MG IV PUSH (03:16)
[2020-09-09 06:25] LABS: Basophils Percent Auto 0.6 % (0.2-1.2); Eosinophils Absolute Auto 0.1 K/mm3 (0-0.3); Eosinophils Percent Auto 1.4 % (0-4.4); Hematocrit 38.1 % (42.0-52.0); Hemoglobin 13.5 g/dL (14.0-18.0); Immature Granulocyte Absolute 0.02 K/mm3 (0.00-0.031); Immature Granulocyte Percent A 0.3 % (0-0.5); Lymphocytes Absolute Auto 1.37 K/mm3 (0.9-3.2); Lymphocytes Percent Auto 19.7 % (18.3-44.2); Mean Corpuscular HGB Conc 35.4 g/dl (32-36); Mean Corpuscular Hemoglobin 35.8 pg (26-34); Mean Corpuscular Volume 101.1 fl (80-100); Mean Platelet Volume 11.8 fl (7.4-10.4); Monocytes Absolute Auto 1.2 K/mm3 (0.1-0.6); Monocytes Percent Auto 17.5 % (2.6-8.5); Neutrophils Absolute Auto 4.2 K/mm3 (1.3-6.7); Neutrophils Percent Auto 60.5 % (45.5-73.1); Platelet Count Result 99 k/mm3 (150-375); Red Blood Count 3.77 M/mm3 (4.6-6.20); Red Cell Distribution Width 13.5 % (11.5-14.5)
[2020-09-09 06:37] LABS: Alanine Aminotransferase 46 U/L (4-50); Albumin Level 2.7 g/dL (3.5-5.1); Alkaline Phosphatase 100 U/L (38-126); Anion Gap 4 mmol/L (8-16); Aspartate Amino Transferase 75 U/L (17-59); Bilirubin,Total 5.2 mg/dL (0.2-1.3); Blood Urea Nitrogen 9 mg/dL (9-20); Calcium 8.1 mg/dL (8.4-10.2); Carbon Dioxide 27 mmol/L (22-30); Chloride 103 mmol/L (98-107); Estimated CRCL calculation 171 ml/min; Estimated Glomerular Filt Rate > 60; Glucose 119 mg/dL (75-110); Potassium 3.1 mmol/L (3.4-5.0); Sodium 134 mmol/L (137-145)
--- NOTE | 2020-09-09 08:49 | WPDANESPN ---
Anes - Prog Note Post-Op Date/Time: 09/09/20 08:49 Cardiovascular status: normal Respiratory status: normal Airway patency: baseline Mental status: baseline Post-Op hydration status: normal Vital Signs: Last Vital Signs Temp 36.2 C L 09/09/20 03:27 Pulse 83 09/09/20 05:27 Resp 16 09/09/20 03:30 BP 147/73 H 09/09/20 03:27 Pulse Ox 98 09/09/20 03:30 Pain Score (VAS): 0 I/O: Intake & Output 09/08/20 09/09/20 09/09/20 23:59 07:59 15:59 Intake Total 380 1250 Output Total 720 650 Balance -340 600 Laboratory Tests 09/09/20 05:24 09/09/20 05:24 09/08/20 09/08/20 09/08/20 12:16 12:16 12:16 WBC 11.1 H RBC 4.42 L Hgb 16.0 Hct 44.4 MCV 100.5 H MCH 36.2 H MCHC 36.0 RDW 13.5 Plt Count 122 L MPV 11.6 H Immature Gran % (Auto) 0.3 Neut % (Auto) 74.1 H Lymph % (Auto) 11.[address] [place] % (Auto) 13.0 H Eos % (Auto) 0.3 Baso % (Auto) 0.4 Lymph # (Auto) 1.32 [place] # (Auto) 1.4 H Eos # (Auto) 0.0 Baso # (Auto) 0.0 Abs Immat Gran (auto) 0.03 Absolute Neuts (auto) 8.2 H Absolute Nucleated RBC 0.0 Nucleated RBC % 0.0 % Immature Plt Fraction 5.7 PT INR APTT Sodium 135 L Potassium 3.7 Chloride 99 Carbon Dioxide 27 Anion Gap 9 BUN 12 D Creatinine 0.90 Estim Creat Clear Calc 111 Estimated GFR > 60 Glucose 121 H Lactic Acid Calcium 9.2 Ferritin Total Bilirubin 6.7 H AST 108 H ALT 68 H Alkaline Phosphatase 146 H Total Protein 8.0 Albumin 3.7 Lipase 50 Urine Color Taryn Urine Appearance Clear Urine pH 7.0 Ur Specific [place] 1.020 Urine Protein Negative Urine Glucose (UA) Negative Urine Ketones Negative Ur Blood (Man) 1+ H Urine Nitrate Negative Urine Bilirubin 1+ H Urine Urobilinogen 4.0 H Leukocyte Esterase Rfl Trace H Urine RBC 11-20 H Urine WBC 21-30 H Ur Squamous Epith Cells Rare Urine Bacteria 3+ H Urine Mucus Rare 09/08/20 09/08/20 09/09/20 12:16 12:21 05:24 WBC 7.0 RBC 3.77 L Hgb 13.5 L Hct 38.1 L MCV 101.1 H MCH 35.8 H MCHC 35.4 RDW 13.5 Plt Count 99 L MPV 11.8 H Immature Gran % (Auto) 0.3 Neut % (Auto) 60.5 Lymph % (Auto) 19.7 [place] % (Auto) 17.5 H Eos % (Auto) 1.4 Baso % (Auto) 0.6 Lymph # (Auto) 1.37 [place] # (Auto) 1.2 H Eos # (Auto) 0.1 Baso # (Auto) 0.0 Abs Immat Gran (auto) 0.02 Absolute Neuts (auto) 4.2 Absolute Nucleated RBC 0.0 Nucleated RBC % 0.0 % Immature Plt Fraction 5.0 PT 16.0 H INR 1.3 APTT 34.9 Sodium Potassium Chloride Carbon Dioxide Anion Gap BUN Creatinine Estim Creat Clear Calc Estimated GFR Glucose Lactic Acid 1.3 Calcium Ferritin Total Bilirubin AST ALT Alkaline Phosphatase Total Protein Albumin Lipase Urine Color Urine Appearance Urine pH Ur Specific [place] Urine Protein Urine Glucose (UA) Urine Ketones Ur Blood (Man) Urine Nitrate Urine Bilirubin Urine Urobilinogen Leukocyte Esterase Rfl Urine RBC Urine WBC Ur Squamous Epith Cells Urine Bacteria Urine Mucus 09/09/20 09/09/20 05:24 05:24 WBC RBC Hgb Hct MCV MCH MCHC RDW Plt Count MPV Immature Gran % (Auto) Neut % (Auto) Lymph % (Auto) [place] % (Auto) Eos % (Auto) Baso % (Auto) Lymph # (Auto) [place] # (Auto) Eos # (Auto) Baso # (Auto) Abs Immat Gran (auto) Absolute Neuts (auto) Absolute Nucleated RBC Nucleated RBC % % Immature Plt Fraction PT INR APTT Sodium 134 L Potassium 3.1 L Chloride 103 Carbon Dioxide 27 Anion Gap 4 L BUN 9 Creatinine 0.60 L Estim Creat Clear Calc 171 Estimated GFR > 60 Glucose 119 H Lactic Acid Calcium 8.1 L Ferritin 364.00 H Total Bilirubin
[2020-09-09] MEDS: POTASSIUM CHLORIDE 20 MEQ TABLET 40 MEQ PO ×2 (10:45→17:30)
[2020-09-09] MEDS: DOCUSATE SODIUM 100 MG CAPSULE PO ×2 (10:46→17:29)
[2020-09-09] MEDS: HYDROcodone/acetaminophen (*CRX) 5-325 MG TABLET 1 TAB PO ×2 (10:47→21:27)
[2020-09-09] MEDS: PANTOPRAZOLE SOD SESQUIHYDRATE 20 MG TAB PO (10:47)
--- NOTE | 2020-09-09 15:56 | PC.NURSE ---
This patient, Esteban Calzada, was transferred to [[id number] ] on 09/09/20 at 1556. Personal belongings sent with patient. Belongings list checked and signed with receiving [X ]. Report given to [Ibis ]. Appropriate documentation sent with patient. Patient transfered on room air, A&O x3,
--- NOTE | 2020-09-09 17:21 | PM.IMPN ---
Progress Note: A&P Assessment and Plan (1) Calculus of distal right ureter: Code(s): N20.1 - Calculus of ureter Status: Acute Assessment and Plan: patient was taken for a renal stent and cystoscopy per Urology. Blood cultures preliminary no growth with urine culture pending. The patient was placed back on Rocephin. Levsin is the patient is complaining of having some bladder spasms and some discomfort is bladder as well. The patient had requested a Levsin at this time. He also has pain medication as well. 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 . The patient had phlebotomy [address] scan is showing evidence of cirrhosis with portal hypertension with there is no ascites or peripheral edema elevated MCV and thrombocytopenia probably secondary to liver disease. Will check B12 level though will need follow-up with GI our block captain (3) Sleep apnea, unspecified: Code(s): G47.30 - Sleep apnea, unspecified Status: Chronic Assessment and Plan: Continue with patient's C Pap And he bring his own. (4) Essential (primary) hypertension: Code(s): I10 - Essential (primary) hypertension Status: Chronic Assessment and Plan: patient has not been on any medication. His doctor told him he does monitor his blood pressure. Patient is having some discomfort and feeling like her bladder is full at this time he has not slept well and is feeling irritated. So I did order him some Ativan and his pain medication. I ordered p.r.n. hydralazine. and pressure remains adequate at this time (5) DVT prophylaxis: Code(s): Z29.9 - Encounter for prophylactic measures, unspecified Status: Acute Assessment and Plan: continue mechanical with the thrombocytopenia Subjective Date/time seen: 09/09/20 17:21 Interval history: date of visit 09/09. 50-year-old male with hemochromatosis admitted with distal right ureteral stone and sepsis. Taken to OR were stent was placed and has been hydrated and placed on antibiotics. Feels better today but still discomfort from the stent and frequent urination Exam Narrative: Exam Narrative: blood pressure 142/76 pulse is 80 temp 37.1? with a T-max of 39? to pupils equal reactive sclera is icteric lungs clear CV regular rate rhythm abdomen soft nontender bowel sounds normal active extremities without edema good distal pulses neuro alert cooperative no focal deficits Objective Data Vital Signs Vital Signs: Vital Signs - 24 hr 09/08/20 18:00 09/08/20 18:47 09/08/20 19:44 Temperature 38.4 C H 39.2 C H Pulse Rate 98 100 101 H Respiratory Rate 16 22 H Blood Pressure 167/84 H 180/85 H Pulse Oximetry 98 95 09/08/20 20:00 09/08/20 20:30 09/08/20 21:00 Temperature 39.2 C H 37.1 C Pulse Rate 103 H Respiratory Rate 22 H Blood Pressure Pulse Oximetry 95 09/08/20 22:00 09/09/20 00:00 09/09/20 00:05 Temperature 36.9 C Pulse Rate 93 83 83 Respiratory Rate 20 20 Blood Pressure 146/75 H Pulse Oximetry 99 99 09/09/20 02:00 09/09/20 03:27 09/09/20 03:30 Temperature 36.2 C L Pulse Rate 79 84 84 Respiratory Rate 16 16 Blood Pressure 147/73 H Pulse Oximetry 98 98 09/09/20 04:00 09/09/20 05:27 09/09/20 08:00 Temperature 36.7 C Pulse Rate 83 83 83 Respiratory Rate 16 Blood Pressure 136/74 Pulse Oximetry 100 09/09/20 16:29 Temperature 37.1 C Pulse Rate 81 Respiratory Rate 20 Blood Pressure 143/76 H Pulse Oximetry 100 Intake/Output Intake/Output: Intake & Output 09/06/20 09/07/20 09/08/20 09/09/20 23:59 23:59 23:59 23:59 Intake Total 1430 2730 Output Total 433 1350 Lexie
[2020-09-09] MEDS: WATER FOR IRRIGATION, STERILE 1,000 ML BOTTLE 1000 ML (17:25)
--- NOTE | 2020-09-09 18:19 | PC.NURSE ---
1545 report from [facility] imu, 1600 pt arrived to med/surg unit from imu, alert, denies pain, at bedside.
--- NOTE | 2020-09-09 18:23 | WPDUROPN2 ---
Progress Note: A&P Additional Plan Doing well after stent placement for a septic stone. Continue with antibiotics while cultures are pending. Cannon catheter discussed with patient and nursing staff. He will have a Cannon placed. Can try voiding trial next week, either in the office or on the floor, once the UTI has been treated. Subjective Subjective Date/Time Seen: 09/09/20 11:00 Post Op day: 1 Interval history: Feeling better. Had a fever overnight, but now improved. Voiding about 50cc at a time. Feel the need to go more. He has started tamsulosin. He took the first dose last night. Exam Narrative: Exam Narrative: Appears better today. Objective Data Vital Signs Vital Signs: Vital Signs - 24 hr 09/08/20 18:47 09/08/20 19:44 09/08/20 20:00 Temperature 38.4 C H 39.2 C H Pulse Rate 100 101 H 103 H Respiratory Rate 16 22 H 22 H Blood Pressure 167/84 H 180/85 H Pulse Oximetry 98 95 95 09/08/20 20:30 09/08/20 21:00 09/08/20 22:00 Temperature 39.2 C H 37.1 C Pulse Rate 93 Respiratory Rate Blood Pressure Pulse Oximetry 09/09/20 00:00 09/09/20 00:05 09/09/20 02:00 Temperature 36.9 C Pulse Rate 83 83 79 Respiratory Rate 20 20 Blood Pressure 146/75 H Pulse Oximetry 99 99 09/09/20 03:27 09/09/20 03:30 09/09/20 04:00 Temperature 36.2 C L Pulse Rate 84 84 83 Respiratory Rate 16 16 Blood Pressure 147/73 H Pulse Oximetry 98 98 09/09/20 05:27 09/09/20 08:00 09/09/20 16:29 Temperature 36.7 C 37.1 C Pulse Rate 83 83 81 Respiratory Rate 16 20 Blood Pressure 136/74 143/76 H Pulse Oximetry 100 100 Intake/Output Intake/Output: Intake & Output 09/06/20 09/07/20 09/08/20 09/09/20 23:59 23:59 23:59 23:59 Intake Total 1430 2880 Output Total 720 1700 Balance 710 1180 Meds/Results Medications: Active Medications Generic Name Dose Route Start Last Admin Trade Name Freq PRN Reason Stop Dose Admin Hydrocodone Bitart/Acetaminophen 1 tab 09/08/20 15:47 09/09/20 10:47 Hydrocodone/Acetaminophen (*Crx) 5-325 Mg Tablet PO 1 tab Q4H PRN Administration Pain Rated 1-6 Docusate Sodium 100 mg 09/08/20 17:00 09/09/20 17:29 Docusate Sodium 100 Mg Capsule PO 100 mg BID ULISES Administration Hydralazine HCl 10 mg 09/08/20 19:58 09/08/20 20:24 Hydralazine Hcl 20 Mg/Ml Vial IV PUSH 10 mg Q8H PRN Administration Blood Pressure - High Hyoscyamine 0.125 mg 09/08/20 18:07 Hyoscyamine Sulfate 0.125 Mg Tablet PO Q4H PRN Bladder Spasm Dextrose/Lactated Ringer's 1,000 mls @ 125 mls/hr 09/08/20 15:50 09/09/20 10:46 Dextrose 5%/Lactated Ringers IV CONT 125 mls/hr .Q8H ULISES Administration Ceftriaxone Sodium/Dextrose 1 gm in 50 mls @ 100 mls/hr 09/09/20 14:00 09/09/20 15:32 Rocephin 1 Gm/D5w 50 Ml IVPB 100 mls/hr Q24H ULISES Administration Lorazepam 0.5 mg 09/08/20 20:04 09/09/20 03:16 Lorazepam Inj (*Crx) 2 Mg/Ml Vial IV PUSH 0.5 mg Q6H PRN Administration Anxiety Melatonin 3 mg 09/08/20 21:00 09/08/20 20:23 Melatonin 3 Mg Tablet PO 3 mg HS ULISES Administration Morphine Sulfate 2 mg 09/08/20 15:47 09/09/20 15:32 Morphine Sulfate (*Crx) 2 Mg/Ml Inj IV PUSH 2 mg Q2H PRN Administration Pain Rated 7-10 Naloxone HCl 0.1 mg 09/08/20 15:47 Naloxone Hcl 0.4 Mg/Ml Vial IV PUSH Q2M PRN Opiate Reversal Ondansetron HCl 4 mg 09/08/20 15:47 Ondansetron Inj 4 Mg/2 Ml Vial IV PUSH Q12H PRN Nausea And Vomiting Pantoprazole Sodium 20 mg 09/09/20 09:00 09/09/20 10:47 Pantoprazole Sod Sesquihydrate 20 Mg Tab PO 20 mg QAM ULISES Administration Tamsulosin HCl 0.4 mg 09/08/20 21:00 09/08/20 22:28 Tamsulosin Hcl 0.4 Mg Capsule PO 0.4 mg HS ULISES Administration Radiology Results: ITS Impressions Abdomen/Pelvis CT 09/08/20 13:31 IMPRESSION: 1. Distal right ureteral stone in the pelvis measuring 3 mm with mild hydronephrosis. 2: Cirrhosi
[2020-09-09] MEDS: TAMSULOSIN HCL 0.4 MG CAPSULE PO (21:25)
[2020-09-09] MEDS: MELATONIN 3 MG TABLET PO (21:25)
[2020-09-09] MEDS: HYOSCYAMINE SULFATE 0.125 MG TABLET PO (21:27)
[2020-09-10] MEDS: LORazepam INJ (*CRX) 2 MG/ML VIAL 0.5 MG IV PUSH (01:04)
[2020-09-10] MEDS: DEXTROSE 5%/LACTATED RINGERS 1,000 ML 125 ML IV CONT (02:57)
[2020-09-10 06:00] VITALS: BP 136/87; PULSE 83; RESP 18; TEMP 36.6; O2SAT 99
[2020-09-10 06:12] LABS: Basophils Percent Auto 0.6 % (0.2-1.2); Eosinophils Absolute Auto 0.2 K/mm3 (0-0.3); Eosinophils Percent Auto 3.2 % (0-4.4); Hematocrit 37.9 % (42.0-52.0); Hemoglobin 13.5 g/dL (14.0-18.0); Immature Granulocyte Absolute 0.01 K/mm3 (0.00-0.031); Immature Granulocyte Percent A 0.2 % (0-0.5); Immature Platelet Fraction Pct 4.7 % (0.9-11.2); Lymphocytes Absolute Auto 1.45 K/mm3 (0.9-3.2); Lymphocytes Percent Auto 23.1 % (18.3-44.2); Mean Corpuscular HGB Conc 35.6 g/dl (32-36); Mean Corpuscular Hemoglobin 35.7 pg (26-34); Mean Corpuscular Volume 100.3 fl (80-100); Mean Platelet Volume 11.4 fl (7.4-10.4); Monocytes Absolute Auto 1.1 K/mm3 (0.1-0.6); Monocytes Percent Auto 16.9 % (2.6-8.5); Neutrophils Absolute Auto 3.5 K/mm3 (1.3-6.7); Platelet Count Result 111 k/mm3 (150-375); Red Blood Count 3.78 M/mm3 (4.6-6.20); Red Cell Distribution Width 13.2 % (11.5-14.5); White Blood Count 6.3 K/mm3 (4.5-10.0)
[2020-09-10 06:18] LABS: Anion Gap 6 mmol/L (8-16); Blood Urea Nitrogen 6 mg/dL (9-20); Calcium 8.2 mg/dL (8.4-10.2); Carbon Dioxide 28 mmol/L (22-30); Chloride 100 mmol/L (98-107); Estimated CRCL calculation 171 ml/min; Estimated Glomerular Filt Rate > 60; Glucose 100 mg/dL (75-110); Potassium 3.6 mmol/L (3.4-5.0); Sodium 134 mmol/L (137-145)
[2020-09-10] MEDS: PANTOPRAZOLE SOD SESQUIHYDRATE 20 MG TAB PO (09:00)
[2020-09-10] MEDS: DOCUSATE SODIUM 100 MG CAPSULE PO (09:00)
[2020-09-10] MEDS: MORPHINE SULFATE (*CRX) 2 MG/ML INJ IV PUSH (09:26)
--- NOTE | 2020-09-10 12:26 | PM.IMPN ---
Progress Note: A&P Assessment and Plan (1) Calculus of distal right ureter: Code(s): N20.1 - Calculus of ureter Status: Acute Assessment and Plan: patient was taken for a renal stent and cystoscopy per Urology 09/08 . Blood cultures preliminary no growth with urine culture gram + external elvis. The patient was placed back on Rocephin and has improved so continue and transition to cefdinir when change to oral. Levsin is ordered for bladder spasms . He also has pain medication as well. WBC continues to be normal. 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 . The patient had phlebotomy [address] scan is showing evidence of cirrhosis with portal hypertension but there is no ascites or peripheral edema elevated MCV and thrombocytopenia probably secondary to liver disease. B12 also normal. ferritin elevated at 364 but partially could be from acute phase reactant from the sepsis. we will check iron studies for iron saturation also along with hepatitis AB and C profile but as per CT scan and laboratory findings he probably already has some degree of liver damage, INR slightly elevated and will check ammonia level also (3) Sleep apnea, unspecified: Code(s): G47.30 - Sleep apnea, unspecified Status: Chronic Assessment and Plan: Continue with patient's C Pap And he bring his own. (4) Essential (primary) hypertension: Code(s): I10 - Essential (primary) hypertension Status: Chronic Assessment and Plan: patient has not been on any medication. His doctor told him he does monitor his blood pressure. with the pain he is experiencing Ativan and his pain medication . p.r.n. hydralazine. and pressure remains adequate at this time (5) DVT prophylaxis: Code(s): Z29.9 - Encounter for prophylactic measures, unspecified Status: Acute Assessment and Plan: continue mechanical with the thrombocytopenia Subjective Date/time seen: 09/10/20 12:26 Interval history: date of visit 09/10. 50-year-old male with hemochromatosis admitted with distal right ureteral stone and sepsis. Taken to OR where stent was placed and has been hydrated and placed on antibiotics. Feels better today but still discomfort from the stent when urinates but higuera placed last pm.. No nausea or vomiting Exam Narrative: Exam Narrative: blood pressure 136/86 pulse is 82 temp 36.7? with a T-max of 38? pupils equal reactive sclera is icteric lungs clear CV regular rate rhythm abdomen soft nontender bowel sounds normal active extremities without edema good distal pulses neuro alert cooperative no focal deficits Objective Data Vital Signs Vital Signs: Vital Signs - 24 hr 09/09/20 16:29 09/09/20 22:00 09/10/20 06:00 Temperature 37.1 C 38.0 C H 36.6 C Pulse Rate 81 94 83 Respiratory Rate 20 18 18 Blood Pressure 143/76 H 145/77 H 136/87 Pulse Oximetry 100 97 99 Intake/Output Intake/Output: Intake & Output 09/07/20 09/08/20 09/09/20 09/10/20 23:59 23:59 23:59 23:59 Intake Total 1430 3880 1600 Output Total 720 1700 2050 Balance 710 2180 -450 Meds/Results Medications: Active Medications Generic Name Dose Route Start Last Admin Trade Name Freq PRN Reason Stop Dose Admin Hydrocodone Bitart/Acetaminophen 1 tab 09/08/20 15:47 09/09/20 21:27 Hydrocodone/Acetaminophen (*Crx) 5-325 Mg Tablet PO 1 tab Q4H PRN Administration Pain Rated 1-6 Docusate Sodium 100 mg 09/08/20 17:00 09/10/20 09:00 Docusate Sodium 100 Mg Capsule PO 100 mg BID ULISES Administration Hydralazine HCl 10 mg 09/08/20 19:58 09/08/20 20:24 Hydralazine Hcl 20 Mg/Ml Vial IV PUSH 10 mg Q8H PRN Administration Blood Pressure - High Hyoscya
[2020-09-10 14:00] VITALS: BP 151/73; PULSE 86; RESP 18; TEMP 37.3; O2SAT 98
--- NOTE | 2020-09-10 15:11 | WPDUROPN2 ---
Progress Note: A&P Assessment and Plan (1) Hemochromatosis: Code(s): E83.119 - Hemochromatosis, unspecified Status: Chronic Assessment and Plan: Being managed by Medicine, patient will need to follow up with computer network specialist after discharge according to Dr. Rios for further management of this disease. (2) Urge incontinence: Code(s): N39.41 - Urge incontinence Status: Acute Assessment and Plan: Higuera is in for now, however, will do a voding trial before he leaves and if he is emptying ok, will recommmend he go home with Levsin or ditropan for spasming and urgency d/t stent. (3) Calculus of distal right ureter: Code(s): N20.1 - Calculus of ureter Status: Acute Assessment and Plan: Will discuss with Dr. Arnold/Anthony about when ureteroscopy can be done, since cultures are negative. (4) Sepsis: Qualifiers: Sepsis acute organ dysfunction status: unspecified Sepsis type: sepsis due to unspecified organism Qualified Code(s): A41.9 - Sepsis, unspecified organism Code(s): A41.9 - Sepsis, unspecified organism Status: Acute Assessment and Plan: Afebrile, hypertensive. Subjective Subjective Date/Time Seen: 09/10/20 15:11 POD #2 Cystoscopy, right stent placement, right retrograde pyelogram. Urine culture and preliminary blood cultures are negative. He was not on antibiotics prior to hospital admission. Patient having stent pain today which is controlled by Morphine, he is concerned about his hemochromatosis, which is being followed by Dr. Rios, and he is currently trying to find a new computer network specialist, but hasn't been historically well controlled since being diagnosed [address] scan shows progression of this in that he has evidence of cirrhosis. He is concerned with his eyes being jaundiced. Review of Systems Cardiovascular: Cardiovascular: Denies chest pain Respiratory: Respiratory: Reports no additional respiratory complaints Gastrointestinal: Gastrointestinal: Denies abdominal pain, Denies nausea and Denies vomiting Genitourinary: Genitourinary: Reports other (has higuera in d/t urgency and frequency caused by stent) Exam Resp: Effort & Inspection: normal respiratory effort Cardio: Rate: regular rate GI: GI Palp: Yes Soft to palpation and No Tenderness to palpation present (GI) Urinary Catheter: Urinary Catheter: patent and draining and urine clear Extrem: General: no edema Objective Data Vital Signs Vital Signs: Vital Signs - 24 hr 09/09/20 16:29 09/09/20 22:00 09/10/20 06:00 Temperature 98.7 F 100.4 F H 97.8 F Pulse Rate 81 94 83 Respiratory Rate 20 18 18 Blood Pressure 143/76 H 145/77 H 136/87 Pulse Oximetry 100 97 99 09/10/20 14:00 Temperature 99.1 F Pulse Rate 86 Respiratory Rate 18 Blood Pressure 151/73 H Pulse Oximetry 98 Intake/Output Intake/Output: Intake & Output 09/07/20 09/08/20 09/09/20 09/10/20 23:59 23:59 23:59 23:59 Intake Total 1430 3880 1840 Output Total 720 1700 2050 Balance 710 2180 -210 Meds/Results Medications: Active Medications Generic Name Dose Route Start Last Admin Trade Name Freq PRN Reason Stop Dose Admin Hydrocodone Bitart/Acetaminophen 1 tab 09/08/20 15:47 09/09/20 21:27 Hydrocodone/Acetaminophen (*Crx) 5-325 Mg Tablet PO 1 tab Q4H PRN Administration Pain Rated 1-6 Docusate Sodium 100 mg 09/08/20 17:00 09/10/20 09:00 Docusate Sodium 100 Mg Capsule PO 100 mg BID ULISES Administration Hydralazine HCl 10 mg 09/08/20 19:58 09/08/20 20:24 Hydralazine Hcl 20 Mg/Ml Vial IV PUSH 10 mg Q8H PRN Administration Blood Pressure - High Hyoscyamine 0.125 mg 09/08/20 18:07 09/09/20 21:27 Hyoscyamine Sulfate 0.125 Mg Tablet PO 0.125 mg Q4H PRN Administration Bladder Spasm Ceftriaxone Sodium/Dextrose 1 gm in 50 mls @ 100 mls/hr 09/09/20 14:00 09/09/20 15:32 Rocephin 1 Gm/D5w 50 Ml IVPB 100 mls/hr Q24H ULISES Ad
--- NOTE | 2020-09-10 15:35 | PM.DS ---
DS: Admitting Diagnosis Admitting Diagnosis Admitting Diagnosis: sent by PMD for possible sepsis. DS: Discharge Diagnosis Discharge Diagnosis (1) Hemochromatosis: Code(s): E83.119 - Hemochromatosis, unspecified Status: Chronic Assessment and Plan: management per primary care doctor (2) Calculus of distal right ureter: Code(s): N20.1 - Calculus of ureter Status: Acute Assessment and Plan: will call to arrange definitive stone operation DS: Summary Time Spent with Patient Time attestation: Total time spent providing and/or coordinating discharge services: 15 minutes Exam Const: General: cooperative HENMT: Head: normal to inspection General nose exam: Normal external nose present Mouth: Yes moist mucous membranes Eyes: General: appearance normal, both eyes and all related structures Sclera: scleral abnormality Neck: Neck: full ROM Resp: Effort & Inspection: normal respiratory effort Urinary Catheter: Urinary Catheter: patent and draining and urine clear Skin: General skin exam: normal color Neuro: General: oriented to person DS: Data Data Completed and Pending Labs on day of discharge: Labs from last 24 hours 09/10/20 09/10/20 05:41 05:41 WBC 6.3 RBC 3.78 L Hgb 13.5 L Hct 37.9 L MCV 100.3 H MCH 35.7 H MCHC 35.6 RDW 13.2 Plt Count 111 L MPV 11.4 H Immature Gran % (Auto) 0.2 Neut % (Auto) 56.0 Lymph % (Auto) 23.1 Stewart % (Auto) 16.9 H Eos % (Auto) 3.2 Baso % (Auto) 0.6 Lymph # (Auto) 1.45 Stewart # (Auto) 1.1 H Eos # (Auto) 0.2 Baso # (Auto) 0.0 Abs Immat Gran (auto) 0.01 Absolute Neuts (auto) 3.5 Absolute Nucleated RBC 0.0 Nucleated RBC % 0.0 % Immature Plt Fraction 4.7 Sodium 134 L Potassium 3.6 Chloride 100 Carbon Dioxide 28 Anion Gap 6 L BUN 6 L Creatinine 0.60 L Estim Creat Clear Calc 171 Estimated GFR > 60 Glucose 100 Calcium 8.2 L Vitamin B12 841.0 Preliminary micro results at discharge 09/08/20 12:21 Blood Culture - Preliminary Blood 09/08/20 12:16 Blood Culture - Preliminary Blood Discharge Plan Discharge Attending physician on discharge: Gonzalez Cruz Consulting providers: Chris Boyd Discharging Clinician: Gonzalez Cruz Anticipated Discharge Date/Time: 09/10/20 15:30 Patient Disposition: Home, Self-Care Activity: may shower Diet: as tolerated Discharge Instructions: light activity for the next week. we will call and arrange definitive stone operation Patient Instructions: Antibiotic Form Stand Alone Forms: General Discharge Information Follow-up/Referrals: Jose Cruz Meza MD [Primary Care Provider] - Discharge Medications: New hydrocodone-acetaminophen 5-325 mg Tablet 1 tab PO Q4H PRN (Reason: Pain Rated 1-6) 30 Days Qty: 30 RF: 0 docusate sodium 100 mg Capsule 100 mg PO BID Qty: 30 RF: 0 levofloxacin 500 mg tablet 500 mg PO DAILY Qty: 7 RF: 5 tamsulosin 0.4 mg Capsule 0.4 mg PO HS Qty: 14 RF: 0 Continued pantoprazole 20 mg tablet,delayed release (DR/EC) 20 mg PO QAM RF: 0 Date of admission: 09/08/20 14:38 Primary Care Provider: Jose Cruz Meza Admitting Provider: Chris Boyd Attending physician on admission: Chris Boyd Condition: Guarded Prognosis Quality VTE Prophylaxis VTE prophylaxis: mechanical ordered
--- NOTE | 2020-09-10 17:52 | PC.NURSE ---
1600 higuera irigated , then removed without difficulty, 1630 pt voided 200cc , bladder scan done 16ml residual urine.
--- NOTE | 2020-09-14 10:58 | PM.DS ---
DS: Admitting Diagnosis Admitting Diagnosis Admitting Diagnosis: sent by PMD for possible sepsis. DS: Discharge Diagnosis Discharge Diagnosis (1) Calculus of distal right ureter: Code(s): N20.1 - Calculus of ureter Status: Acute Assessment and Plan: patient was taken for a renal stent and cystoscopy per Urology 09/08 . Blood cultures preliminary no growth with urine culture gram + external elvis. The patient was placed back on Rocephin and has improved so continue and transition to levofloxacin at d/c. Levsin is ordered for bladder spasms . He also has pain medication as well. WBC continues to be normal. 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 . The patient had phlebotomy [address] scan is showing evidence of cirrhosis with portal hypertension but there is no ascites or peripheral edema elevated MCV and thrombocytopenia probably secondary to liver disease. B12 also normal. ferritin elevated at 364 but partially could be from acute phase reactant from the sepsis. stressed importance of following up with airframe design engineer but as per CT scan and laboratory findings he probably already has some degree of liver damage, INR slightly elevated also (3) Sleep apnea, unspecified: Code(s): G47.30 - Sleep apnea, unspecified Status: Chronic Assessment and Plan: Continue with patient's C Pap (4) Essential (primary) hypertension: Code(s): I10 - Essential (primary) hypertension Status: Chronic Assessment and Plan: patient has not been on any medication. His doctor told him he does monitor his blood pressure. with the pain he is experiencing Ativan and his pain medication . p.r.n. hydralazine. while inpatient and follow-up with primary care DS: Summary Hospital Course Hospital Course: 50-year-old male with history of hemochromatosis admitted with distal right ureteral stone and sepsis. Taken to the OR for cystoscopy and placement right ureteral stent. Received IV ceftriaxone here white count fever defervesced urine and blood cultures were no growth. remained on levofloxacin 500 daily at discharge and will follow-up with urology within 7-10 days for stent removal and stone extraction. Ferritin was elevated at [address] scan revealed evidence of cirrhosis with portal hypertension. Stressed the importance of following with Gastroenterology. Time Spent with Patient Time attestation: Total time spent providing and/or coordinating discharge services:35 minutes Exam Narrative: Exam Narrative: condition on discharge blood pressure 150/74 pulse is 86 temp 37.3? lungs clear CV regular rate rhythm abdomen soft nontender extremities without edema good distal pulses he was up in about feeling well with discomfort from the stent but taking the diet well, ambulating garza, and discharged in stable condition to return to have stent removed possible stone extraction next week DS: Data Data Completed and Pending Labs on day of discharge: Preliminary micro results at discharge 09/08/20 12:21 Blood Culture - Preliminary Blood 09/08/20 12:16 Blood Culture - Preliminary Blood Discharge Plan Discharge Attending physician on discharge: Gonzalez Cruz Consulting providers: Chris Boyd ; Jeanette Tyler ; Edis Ewing ; Eda Baker ; Rashad Garcia ; Jonathon Tyson ; Tristian Rios Discharging Clinician: Gonzalez Cruz Anticipated Discharge Date/Time: 09/10/20 15:30 Patient Disposition: Home, Self-Care Activity: march shower Diet: as tolerated Discharge Instructions: light activity for the next week. we will call and arrange definitive stone operation Patient Instructions: Antibiotic Form
== END 2020-09-10 16:45 | disposition home or self-care (01) | DRG 661 ==
LOC: ANHED 14:18 → ANHSURGERY 14:20 → ANH3MEDSUR 09-10 15:30 → ANHIMU 09-19 15:56 → ANH3MEDSUR 09-19 16:11
PROVIDERS: Emergency Medicine; Internal Medicine; Nurse Practitioner; Urology; Admitting Provider Internal Medicine; Emergency Provider Emergency Medicine; PCP Family Medicine; Visit Provider Urology
PROC: 0T768DZ Dilation of Right Ureter with Intraluminal Device, Via Natural or Artificial Opening Endoscopic (ICD-10-PCS; CPT 52352; principal; 2020-09-08 15:30)
DX: N20.1 Calculus of ureter (principal); E83.119 Hemochromatosis, unspecified; N39.41 Urge incontinence; G47.30 Sleep apnea, unspecified; N40.0 Benign prostatic hyperplasia without lower urinary tract symptoms; F32.9 Major depressive disorder, single episode, unspecified; I10 Essential (primary) hypertension; E66.9 Obesity, unspecified; Z68.39 Body mass index [BMI] 39.0-39.9, adult; D69.59 Other secondary thrombocytopenia; K74.69 Other cirrhosis of liver
CPT/HCPCS: 36415; 74177; 74420; 80048; 80053; 81001; 82607; 82728; 83605; 83690; 85025; 85055; 85610; 85730; 87040; 87086; 87088; 93005; 96365; 99285; A9270; C1758; C1769; C2617; J0131; J0360; J0696; J2060; J2250; J2270; J2405; J2704; J3010; J7030; J7120; J7121; Q9966; Q9967

== ENCOUNTER 2020-09-18 01:52 | Outpatient (CLI) | payer OTHER, SELFPAY ==
[2020-09-18 19:02] LABS: SARS-CoV-2 RNA PCR Negative
== END 2020-09-18 01:53 | disposition home or self-care (01) ==
LOC: ANHCOVIDDT 01:53
PROVIDERS: PCP Family Medicine; Visit Provider Urology
DX: Z01.812 Encounter for preprocedural laboratory examination (principal); Z20.828 Contact with and (suspected) exposure to other viral communicable diseases
CPT/HCPCS: 87635; C9803; U0003

== ENCOUNTER 2020-09-20 01:28 | Day surgery (SDC) | payer OTHER, SELFPAY ==
[2020-09-13 13:09] VITALS: BMI 36.9
--- NOTE | 2020-09-19 13:04 | WPDANESEPPF ---
Anes - Initial Pre Proc Eval Procedure: Operation Date: 09/20/20 10:30 Proposed Procedures p Cystoscopy, Right Ureteroscopy, Right Stone Extraction, Possible Right Retrograde Pyelogram, Possible Right Stent Exchange - William Arnold MD s Possible Holmium Laser Procedure - William Arnold MD Date/Time: 09/19/20 13:04 Surgeon: William Arnold MD Pre Op Diagnosis: Right Ureteral Stone Patient Data Age: 50 Gender: M Height: 1.8 m Weight: 120.2 kg Allergies Allergy/AdvReac Type Severity Reaction Status Date / Time Penicillins Allergy Unknown Rash Verified 09/13/20 13:09 Home Medications Medication Instructions Recorded Confirmed Type pantoprazole 20 mg tablet,delayed 20 mg PO QAM 02/08/20 09/13/20 History release hydrocodone-acetaminophen 1 tab PO Q4H PRN 30 Days #30 tablet 09/10/20 09/13/20 Rx levofloxacin 500 mg PO DAILY #7 tablet 09/10/20 09/13/20 Rx ECG: Date of Service: 09/08/20 Procedure(s): CA 12 lead EKG Accession Number(s): [id number] cc: ~ Measurements Intervals [place] Rate: 98 P: 49 NM: 160 QRS: 16 QRSD: 105 T: 10 QT: 346 QTc: 442 Interpretive Statements SINUS RHYTHM RSR' IN V1 OR V2, CONSIDER RIGHT VENTRICULAR HYPERTROPHY OR RIGHT VCD BORDERLINE T WAVE ABNORMALITY- INFERIOR LEADS BORDERLINE ECG Electronically Signed On 09-08-2020 18:11:43 CDT by Rashda Garcia D.O. Dictated By: Rashad Garcia DO 09/08/20 1239 Patient hx anesthesia problems: none Family hx anesthesia problems: none [facility] Past Medical History Medical History (Updated 09/19/20 @ 13:05 by Seamus Bahena MD) BPH (benign prostatic hyperplasia) Depression patient denies this diagnosis and does not take any medicine. Essential (primary) hypertension Patient's blood pressure is elevated today. He said he was elevated in the office but is just monitoring it and is not on any medicine. Familial hemochromatosis Hemochromatosis Hypertension Obesity Sleep apnea, unspecified Urge incontinence Surgical History Surgical History (Updated 09/08/20 @ 20:07 by Jeanette Tyler NP) H/O cystoscopy right renal stent 09/08/2020 History of liver biopsy Hx of cholecystectomy S/P knee replacement Family History Family History Father Malignant neoplasm of prostate Social History Social History Smoking status: Never smoker Alcohol intake: current Drinks per week: 10 Substance use: never Substance use type: does not use Gender identity (if verbalized by the patient): Male Spiritual care concerns: No Anes - Eval Final PreProcedure Day of Procedure 09/19/20 13:04 Patient weight: obese Heart: regular rate and rhythm Lungs: clear to auscultation and normal air movement Airway: Mallampati scale class II Neurological: alert and oriented Last oral intake: >/= 8 hours ASA classification: III Emergent: no Anesthetic plan: proceed Anesthesia type and monitoring: general LMA Informed Consent: The patient's anesthetic plan and its attendant risks and benefits were discussed with the patient/family/POA. Questions were solicited and answers provided to the satisfaction of the patient/family/POA.
[2020-09-20] VITALS (7 sets, daily range): BP systolic 123–163; BP diastolic 74–86; PULSE 68–992; RESP 14–16; TEMP 36.9–37; O2SAT 95–99
--- NOTE | ~2020-09-20 | XR_ITS ---
EXAMINATION: XR fluoroscopy no charge DATE: 09/20/2020 10:25 INDICATION: Right internal ureteral stent placement TECHNIQUE: Fluoroscopic images from a right internal ureteral stent placement are submitted for charla munoz 18 seconds of fluoroscopy time. 2 fluoroscopic images. FINDINGS: There is a right double-J internal ureteral stent projecting in expected position, with proximal [place] loop at the level of the renal pelvis and distal loop in the pelvis within the bladder lumen. IMPRESSION: 1. Right internal ureteral stent placement. Please refer to real-time procedural findings for jc ls. Reviewed, dictated and finalized at location B. IMPRESSION: 1. Right internal ureteral stent placement. Please refer to real-time procedu ral findings for details.
[2020-09-20] MEDS: LACTATED RINGERS 1,000 ML 30 ML IV CONT (09:11)
[2020-09-20] MEDS: ceFAZolin 3 GM/D5W 100 ML 100 ML IVPB (09:59)
--- NOTE | 2020-09-20 10:25 | WPDHPUPDATE1 ---
History and Physical Update Update Date/Time: 09/20/20 10:25 History and Physical has been reviewed, including an updated exam of the patient. There are NO changes in the patient's condition. Risks, benefits, and alternatives have been discussed and questions answered. Patient agrees to proceed with procedure.
--- NOTE | 2020-09-20 10:25 | PM.PROC ---
Procedure Note - Detailed Date of procedure: 09/20/20 Pre-op diagnosis: Right Ureteral Stone Post-op diagnosis: other ( Spontaneously passed right ureteral calculus) Procedure performed: 1. Cystoscopy with right ureteral stent removal 2. Right ureteroscopy Description of procedure: Patient is brought to the operative suite where he has prepped and draped in routine sterile fashion while in a dorsal lithotomy position after the uneventful induction of a general LMA anesthetic. Cystoscopy is undertaken with the 19 F rigid cystoscope. Urine was collected for culture. The tip of the indwelling stent is grasped and the stent is removed with ease. 0.035 glidewire was advanced in the right renal pelvis and the distal ureter was dilated with an 8 F/10 F dilator. Right ureteroscopy was undertaken with a short tapered semi-rigid ureteroscope. There were no stones or other identifiable pathology of the distal right ureter. Ureteroscopy was undertaken to the iliac vessels. It appears as if he is spontaneously pass this stone. I opted not to place the ureteral stent. Patient's bladder was emptied and was taken recovery room in good condition Anesthesia: GLMA Surgeon: William Arnold MD Estimated blood loss (mL): 0 Drains: No Packing: No Pathology: none sent Complications: No immediate complications Condition: stable Disposition: PACU
--- NOTE | 2020-09-20 11:50 | SUR.PHASEII ---
[address] andrade of atbx script and current atbx on. finish current atbx and dr andrade will notify pt after culture received to assess atbx use.
== END 2020-09-20 11:50 | disposition home or self-care (01) ==
PROVIDERS: PCP Family Medicine; Visit Provider Urology
PROC: (CPT 52352; principal; 2020-09-20 10:30)
DX: N20.1 Calculus of ureter (principal); N40.0 Benign prostatic hyperplasia without lower urinary tract symptoms; R03.0 Elevated blood-pressure reading, without diagnosis of hypertension; G47.30 Sleep apnea, unspecified; E66.9 Obesity, unspecified; Z68.37 Body mass index [BMI] 37.0-37.9, adult
CPT/HCPCS: 52351; 87086; 87635; A9270; C1769; C9803; J0690; J2250; J3010; J7120; U0003

== ENCOUNTER 2020-10-15 11:25 | Outpatient (NON) | payer OTHER, SELFPAY ==
[2020-10-17 13:27] LABS: SARS-CoV-2 RNA PCR Negative
== END 2020-10-15 11:26 ==
LOC: ANHCOVIDDT 11:26
PROVIDERS: PCP Family Medicine; Visit Provider Family Medicine
DX: J02.9 Acute pharyngitis, unspecified (principal); R50.9 Fever, unspecified; Z20.828 Contact with and (suspected) exposure to other viral communicable diseases
CPT/HCPCS: 87635; C9803; U0003